=== PATIENT | female | born 1945 | race Caucasian/White ===

== ENCOUNTER 2023-07-12 08:50 | Outpatient (CLI) | payer MEDICARE | END 2023-07-12 08:51 | disposition home or self-care (01) | LOC: SCSMRI 08:50 | PROVIDERS: ATTEND Psychiatry & Neurology Neurology | DX: R51.9 Headache, unspecified (principal); H05.20 Unspecified exophthalmos; M47.891 Other spondylosis, occipito-atlanto-axial region; R90.89 Other abnormal findings on diagnostic imaging of central nervous system | CPT/HCPCS: 70551 ==